=== PATIENT | male | born 1985 | race African-American/Black ===

== ENCOUNTER 2024-07-31 23:05 | Emergency (ER) | payer SELFPAY ==
[~2024-07-31] VITALS: Ht 175.3 cm; Wt 86.2 kg
[2024-07-31 23:06] VITALS: BP 139/84; PULSE 108; RESP 16; TEMP 208.4; O2SAT 97
[2024-08-01] MEDS: KETOROLAC 60 MG/2 ML VIAL IM ONE (00:17)
[2024-08-01 00:52] VITALS: BP 139/84; PULSE 108; RESP 16; TEMP 98.4; O2SAT 97
== END 2024-08-01 00:52 ==
LOC: MED 23:05
DX: S93.401A Sprain of unspecified ligament of right ankle, initial encounter (principal); R03.0 Elevated blood-pressure reading, without diagnosis of hypertension; Z98.890 Other specified postprocedural states; V49.49XA Driver injured in collision with other motor vehicles in traffic accident, initial encounter; Y93.89 Activity, other specified; Y92.89 Other specified places as the place of occurrence of the external cause; Y99.8 Other external cause status
CPT/HCPCS: 73610; 96372; 99283; J1885